=== PATIENT | male | born 1950 ===

== ENCOUNTER 2017-08-25 14:52 | Inpatient (IN) | payer SELFPAY ==
[~2017-08-25 14:52] MED LIST: ISOVUE-370 76%-LOCM 1 ML ONE
[2017-08-25 15:18] LABS: #Basophils 0.1 thou/uL (0.0-0.2); #Eosinphils 0.2 thou/uL (0.0-0.7); #Lymphocytes 2.1 thou/uL (1.20-3.40); #Monocytes 0.5 thou/uL (0.11-0.59); #Neutrophils 4.9 thou/uL (1.40-6.50); %Basophils 0.8 % (0.0-1.0); %Eosinophils 2.4 % (0.0-10.0); %Lymphocytes 26.6 % (21.0-51.0); %Monocytes 6.9 % (0.0-10.0); %Neutrophils 63.3 % (42.0-75.0); Hemoglobin 14.9 g/dL (14.0-18.0); Mean Corpuscular HGB CONC 34.4 g/dL (32.0-36.0); Mean Corpuscular Hemoglobin 29.9 pg (27.0-31.0); Mean Corpuscular Volume 86.9 fl (80.0-94.0); Mean Platelet Volume 7.3 fL (7.4-10.4); Platelet Count 262 thou/uL (130-400); RBC Distribution Width 11.3 % (11.5-14.5); Red Blood Cell (RBC) Count 4.99 mill/uL (4.70-6.10); White Blood Cell (WBC) Count 7.8 thou/uL (4.8-10.8)
[2017-08-25 15:24] LABS: PTT 26.2 SEC (22.9-36.1); Prothrombin Time 13.6 SEC (12.0-14.7)
[2017-08-25 15:33] LABS: ALT (SGPT) 19 U/L (8-55); AST (SGOT) 16 U/L (5-34); Albumin 4.3 g/dL (3.4-4.8); Alkaline Phosphatase 87 U/L (40-150); Anion Gap 13 mmol/L (10-20); BUN (Urea Nitrogen) 11 mg/dL (8.4-25.7); Bilirubin, Total 0.5 mg/dL (0.2-1.2); Calc. Creatinine Clearance 0 mL/min (70-130); Calcium 9.9 mg/dL (7.8-10.44); Carbon Dioxide 22 mmol/L (23-31); Chloride 103 mmol/L (98-107); Estimated GFR-MDRD 86; Glucose 321 mg/dL (80-115); Potassium 4.1 mmol/L (3.5-5.1); Protein, Total 7.3 g/dL (5.8-8.1); Sodium 134 mmol/L (136-145)
[2017-08-25 15:36] LABS: CKMB 1.2 ng/mL (0-6.6); Troponin I Less than 0.010 ng/mL (< 0.028)
--- NOTE | 2017-08-25 17:26 | CT ---
CT ARTERIOGRAM HEAD WITH IV CONTRAST AND 3D MIP IMAGING CT PERFUSION BRAIN EXAM 08/25/17 HISTORY: Right arm paresthesias. Last seen normal four hours ago. FINDINGS: Noncontrast head CT is not included. Small amounts of hemorrhage cannot be excluded. There is bovine origin of the great vessels from the aortic arch with mild arterial calcification. Go od contrast flow into each carotid system and each vertebral artery. There is calcification of each c arotid bifurcation with no significant stenosis. Noncalcified plaque along the medial margin of the p roximal right internal carotid artery includes some contrast into an ulceration. Intracranially, the [place] is patent. Good flow throughout each internal carotid system and to the vertebrobasilar system. Perfusion images show no alteration of flow. Perfusion is symmetric. IMPRESSION: Atherosclerosis. No acute intracranial vascular insult is apparent. Findings were called to Dr. Scott in the Emergency Department at 1540 hours. Code CR POS: [facility]
--- NOTE | 2017-08-25 17:28 | CT ---
CT HEAD WITH IV CONTRAST 08/25/17 HISTORY: Slurred speech. Recent CT arteriogram and perfusion. FINDINGS: Diffuse cortical atrophy is apparent. Ventricular size is upper limits of normal. No abnormal areas o f contrast enhancement are apparent. A noncontrast study is not included to exclude a small amount of intracranial hemorrhage. Prior nonco ntrast CT was reportedly negative for intracranial hemorrhage. IMPRESSION: No acute intracranial abnormalities are demonstrated. POS: [facility]
[2017-08-25] MEDS ORDERED: Labetalol HCl 100 MG/20 ML VIAL SLOW IVP PRN (19:06)
[2017-08-25] MEDS ORDERED: niCARdipine 20MG in NaCl 200 ML BAG IVPB PRN (19:06)
[2017-08-25] MEDS ORDERED: niCARdipine HCl 25 MG in Sodium Chloride 0.9% 250 ML 240 ML IVPB PRN (19:09)
[2017-08-25] MEDS ORDERED: Acetaminophen 650 MG Suppository PR PRN (20:11)
[2017-08-25] MEDS ORDERED: Ondansetron HCl/PF 4 MG/2 ML Vial IVP PRN (20:11)
[2017-08-25] MEDS ORDERED: Bisacodyl 5 MG TAB PO PRN (20:11)
[2017-08-25] MEDS ORDERED: Ondansetron ODT 4 MG TAB PO PRN (20:11)
[2017-08-25] MEDS: Docusate 100 MG CAP PO SCH (22:10)
[2017-08-25] MEDS: Famotidine 20 MG TAB PO SCH (22:10)
--- NOTE | 2017-08-26 03:21 | HP ---
PRIMARY CARE PHYSICIAN: None. CHIEF COMPLAINT: Right facial droop, slurred speech, and right upper extremity weakness. HISTORY OF PRESENT ILLNESS: This is a 67-year-old, white male without any known past medical history. He had acute onset of slurred speech and right- sided facial droop along with right upper extremity weakness at 11 this morning. He was seen at [facility] and had tPA done at 2: 55 in the afternoon, just under 4 hours after beginning of symptoms. Per EMS, the patient's speech and facial droop have improved slightly. He was then transferred to our facility for neurology consultation and admission. The patient has not had any bleeding or other side effects from the anticoagulation. Blood pressure was running a little bit high, 183/97, on presentation to the emergency room. It did come down into the 160s and 170s. The patient was then transferred to the ICU. In the ICU, his blood pressure did jump into the 180s again, and so, he has been started on medications to control and keep it below 180/105. The patient denies any other complaints at this time. PAST MEDICAL HISTORY: None. PAST SURGICAL HISTORY: None. SOCIAL HISTORY: The patient used to smoke cigarettes. He was unable to clearly articulate how long ago he quit, that was apparently some years ago. He used to drink some beer, I was unable to elicit from him exactly how much due to his trouble with speech, but stated he quit that some time ago as well. No illicit drugs. ALLERGIES: No known drug allergies. CURRENT MEDICATIONS: The patient takes an occasional aspirin, maybe 2 or 3 times a month. No other regular medicines. FAMILY HISTORY: No family history of stroke or heart attack. REVIEW OF SYSTEMS: CONSTITUTIONAL: No fevers or chills. EYES: No double vision or blurred vision. ENT: No congestion, drainage, or sore throat. PULMONARY: No coughing, wheezing, or shortness of breath. CARDIAC: No chest pain, no palpitations or racing heart. GASTROINTESTINAL: No abdominal pain. No nausea or vomiting. No diarrhea or constipation. GENITOURINARY: No dysuria or hematuria. MUSCULOSKELETAL: No muscle aches or joint pains. SKIN: No rashes or lesions noted. NEUROLOGIC: He noted numbness of his arm. Right upper extremity is feeling , and ever since the onset of the symptoms, he does have some movement in this, but it is more uncoordinated, a little bit weaker, and he has noticed a little bit of numbness on the right side of his face, but not much there and decreased movement in the right side of his face and trouble with his speech, trouble getting out words, especially numbers and getting out names as well are difficult for him. PHYSICAL EXAMINATION: VITAL SIGNS: Blood pressure currently in the 150s/90s, temperature 98.6, pulse in the 90s, respirations 18. GENERAL: This is a well developed, well nourished, white male, in no acute distress. HEENT: Pupils equal, round, and reactive to light. Extraocular movements intact. Oropharynx is clear without lesions, erythema, or exudate. NECK: Supple. No lymphadenopathy, no thyroid nodules or enlargement, no JVD. HEART: Regular rate and rhythm. No murmurs, rubs, or gallops. LUNGS: Clear to auscultation bilaterally. No wheezes, crackles, or rhonchi. ABDOMEN: Soft, nontender to palpation, normoactive bowel sounds, no hepatosplenomegaly or other masses. EXTREMITIES: No clubbing, cyanosis, or edema. SKIN: No rashes or other lesions noted. NEUROLOGIC: The patient has decreased coordination and strength in his right upper extremity, although he is able to move it. He also has a complete right facial droop, sparing his forehead, and he has a lot of dysarthria and trouble with word finding, especially numbers and people's names. Per the ER note, he also failed a bedside swallow. His NIHSS score is 5. PSYCHIATRIC: Alert and oriented x3, normal mood and affect. LABORATORY DATA: EKG shows sinus tachycardia. No ectopic beats. He has a complete right bundle-branch block. No other arrhythmia. CT of the head without contrast negative for abnormalities and CTA perfusion showed no evidence of perfusion defect or intravascular clot. Complete metabolic panel with a sodium of 134, carbon dioxide 22, and glucose of 321, the rest is normal. Cardiac marker set negative x1. Coagulation profile normal. CBC was normal. ASSESSMENT AND PLAN: 1. Acute ischemic stroke, status post tPA. We will follow guidelines of keeping blood pressure below 180/105 for the first 24 hours after administration of the tPA that will be until about 3 tomorrow afternoon. We will closely monitor his NIH stroke scale for any sudden changes and CT if necessary. We will go ahead and get an MRI to evaluate for the location and extent of the stroke, and we will get a repeat CT after 24 hours at 3 tomorrow afternoon to make certain of no bleeding post-tPA. We will go ahead and consult the stroke team and neurologist as well. 2. Dysphagia. We will do the saline bedside swallow. We will have Speech Therapy evaluate the patient. We will keep him nothing by mouth for now. 3. Gastrointestinal prophylaxis the patient on Pepcid twice a day. 4. Deep venous thrombosis prophylaxis. We will need to hold off on antiplatelet or blood thinner medications like Lovenox for at least 24 hours after his tPA administration. We will go ahead and use sequential compression devices for now. 5. Code status. I did discuss this with the patient at length. He did express understanding of the questions about whether he wanted chest compressions, shocks, and intubation. He was adamant that he would not want any of those things that he is a DO NOT RESUSCITATE, but otherwise wants normal medical care. He stated that his children would be his medical decision makers should he be incapacitated; however, he was unable to enunciate their names or phone numbers for me due to his dysarthria. We will try and find them from records from the [facility]
[2017-08-26] MEDS: Acetaminophen 325 MG TAB PO PRN (04:20)
[2017-08-26] MEDS ORDERED: FLU VACC TS2017-18 (>65YR) 0.5 ML SYRINGE IM ONE (09:00)
--- NOTE | 2017-08-26 09:50 | RAD ---
CHEST 1 VIEW: Date: 08/26/17 HISTORY: CVA. FINDINGS: Cardiac silhouette is magnified by projection. Pulmonary vasculature is unremarkable. Mediastinum is midline with aortic calcification. No lobar consolidation or evidence of pneumothorax. There are dege nerative changes of each shoulder. 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 IMPRESSION: Atherosclerosis. No active cardiopulmonary abnormalities are otherwise demonstrated. POS: [facility]
--- NOTE | 2017-08-26 10:04 | PDOC.PN ---
- Subjective Encounter Start Date: 08/26/17 Encounter Start Time: 12:00 Subjective: Patient with some improvement in speech. Right arm with some -: return of sensation and improvement in strenght, still uncoordinated. - Objective Resuscitation Status: Resuscitation Status DNR:Do Not Resuscitate MAR Reviewed: Yes Vital Signs & Weight: Vital Signs (12 hours) Temp Pulse Ox 08/26/17 07:35 96 08/26/17 07:00 97.8 F 08/26/17 04:00 98.2 F 08/26/17 00:00 97.6 F Weight Weight 194 lb 10.691 oz Most Recent Monitor Data Heart Rate from ECG 91 NIBP 156/86 NIBP BP-Mean 96 Respiration from ECG 16 SpO2 92 I&O: 08/25/17 08/26/17 08/27/17 06:59 06:59 06:59 Intake Total 360 Output Total 425 Balance -65 Result Diagrams: 08/25/17 15:07 08/25/17 15:07 Phys Exam - Physical Examination Constitutional: NAD HEENT: moist MMs Respiratory: no wheezing, no rales, no rhonchi, clear to auscultation bilateral Cardiovascular: RRR, no significant murmur Gastrointestinal: soft, non-tender, positive bowel sounds right UE incoordinated, still with right facial droop Psychiatric: normal affect, A&O x 3 Dx/Plan (1) Ischemic stroke Code(s): I63.9 - CEREBRAL INFARCTION, UNSPECIFIED Status: Acute (2) Tissue plasminogen activator (t-PA) administered at other facility within 24 hours prior to current admission Code(s): Z92.82 - S/P ADMN TPA IN DIFF FAC W/N LAST 24 HR BEF ADM TO CRNT FAC Status: Acute Comment: BP at goal, remaining less than 180/105, will repeat CT brain this afternoon at 24 hours after t-PA admin (3) Dysphagia Code(s): R13.10 - DYSPHAGIA, UNSPECIFIED Status: Acute Comment: passed bedside swallow overnight, speech therapy to see - Plan cont current plan of care, PT/OT, social service assistant, speech therapy no antiplatelet or lovenox for 24 hours after t-PA -: Can transfer to stroke after 1500 if no neurologic decline -: awaiting neuro eval * . - Discharge Day Encounter end time: 12:15
[2017-08-26] MEDS: Aspirin 325 mg Enteric Coated Tablet PO SCH (10:08)
[2017-08-26] MEDS: Famotidine 20 MG TAB PO SCH ×2 (10:08→20:11)
[2017-08-26] MEDS: Docusate 100 MG CAP PO SCH ×2 (10:08→20:11)
--- NOTE | 2017-08-26 11:52 | CON ---
DATE OF CONSULTATION: 08/26/2017 HISTORY OF PRESENT ILLNESS: He is a 67-year-old gentleman admitted here after he received t-PA at [facility], transferred over here. Apparently there was no physician to take care of him there. He still has some residual right-sided facial droop. He denies any chest pain, chills, sweats, hemoptysis. 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 He tells me that he has no primary care physician. PAST MEDICAL HISTORY: He states he has no major medical problem, no history of diabetes or hypertens ion. PAST SURGICAL HISTORY: None. TOBACCO: Quit smoking 20 years ago. ALCOHOL: Quit drinking many years ago. CHRONIC MEDICATIONS: None. ALLERGIES: None. SOCIAL/FAMILY HISTORY: Unremarkable. There are no family members to get additional information. REVIEW OF SYSTEMS: Ten point negative. PHYSICAL EXAMINATION: VITAL SIGNS: Pulse 92, blood pressure 156/60, sats 95% on room air, respirations 12. CHEST: Chest revealed minimal wheezing. CARDIAC: Normal S1-S2. No gallops. ABDOMEN: Soft. No mass. LABORATORY: White count 10,000, H&H 14 and 43, platelet count 262. His electrolytes are normal. Hi s initial CT of his head was negative. CT neck report as noted shows small amounts of hemorrhage pos sible. There was good flow through both internal carotid systems. Additionally lab was otherwise normal. IMPRESSION: 1. Status post right-sided weakness, facial drooping, status post t-PA. 2. Former tobacco abuse. 3. Former alcohol abuse. PLAN: Will try and get information as his family arrives. Neurology input. Pulmonary will follow while in the ICU. We will start aspirin. Supportive care. This is a consultation note in the ICU, 70 minutes of which 50% spent in direct patient care.
--- NOTE | 2017-08-26 13:47 | CON ---
DATE OF CONSULTATION: 08/26/2017 CHIEF COMPLAINT: Cerebrovascular accident. HISTORY OF PRESENT ILLNESS: The patient was in his usual state of health and he does not have any kn own medical issues. The patient had slurred speech and right-sided facial droop around 11:00 a.m. an d TPA was completed around 2:55 on 08/25/2017 and following that, the patient had improvement of spee ch and facial droop. The patient still complains of difficulty with speech and also right-sided weak ness. He is stable status post TPA and he does not report any prior medical issues. He states he is healthy otherwise. He does not have any diabetes or hypertension. PAST SURGICAL HISTORY: None. SOCIAL HISTORY: He used to dip. Since last November, he stopped and he weaned himself off of that. He does not smoke. He does drink occasionally. ALLERGIES: No known drug allergies. MEDICATIONS: He takes occasional aspirin. FAMILY HISTORY: No history of any stroke or Health issues in the family. No cancers in the family. REVIEW OF SYSTEMS: Pulmonary: Normal. Cardiac: Normal. Gastrointestinal: Normal. Genitourinary : Normal. Ophthalmologic: Normal. ENT: Normal. Neurologic: Positive for weakness and numbness in the right arm and speech difficulty. Musculoskeletal: No pain. Dermatologic: Normal. LABORATORY DATA: White count 7.8, hemoglobin 14.9, hematocrit 43.3, platelets 262. Chemistry: [place] um 134, potassium 4.1, chloride 103, bicarbonate 22, BUN 11, creatinine 0.89, glucose 321, AST 16, AL T 19, alkaline phosphatase 87, calcium 99, total bilirubin 0.5 and PT 13.6, INR 1.0, PTT 26.2. CT of the head from 08/25/2017 showed no acute intracranial abnormalities. His MRI is pending today. PHYSICAL EXAMINATION: VITAL SIGNS: Blood pressure 163/86, heart rate 87, respiratory rate 11, temperature afebrile. GENERAL APPEARANCE: Well-built, well-nourished, very pleasant gentleman. CHEST: Clear vesicular breathing. CARDIOVASCULAR: S1, S2 heard, no murmurs. ABDOMEN: Soft, nontender, no organomegaly noted. NEUROLOGIC: Motor: Bulk normal, tone normal, strength 5/5 throughout in iliopsoas, hamstrings, quad riceps, ankle dorsiflexion, plantar flexion, deltoid, biceps, triceps, wrist extension and flexion, f jeff extension and flexion on the left side. On the right side, his upper extremity deltoid is 4/5, biceps 4+/5, triceps 5, wrist extension is 4, flexion is 4, finger extension 3+, finger flexion 3+. Deep tendon reflexes 2+ in upper and lower extremities in biceps, triceps, brachioradialis, and knee jerks and ankle jerks. Sensory: Normal touch, temperature proprioception, vibration bilaterally. Cerebellar: Normal [id number] and [id number]. IMPRESSION: The patient is a 67-year-old man with no known medical problems. He is in his usual sta te of health and developed sudden onset right-sided weakness as well as numbness in the right hand an d aphasia and speech and swallowing difficulties. He received IV TPA yesterday and he remained stabl e. Examination shows dysarthria, mild aphasia and weakness in the right upper extremity. His clinic al examination and history is consistent with most likely left MCA branch occlusion, underlying facto rs need to be investigated. RECOMMENDATIONS: We are waiting on his MRI of the brain. I will also add MR angiogram of the brain to the orders and complete stroke workup including echocardiogram, carotid Dopplers and we will also need to obtain echocardiogram and stroke labs. I will follow up the patient with you for now. Radha steele acute IV TPA stroke protocol. We will keep permissive hypertension with systolic around 180, diast olic around 100. Thank you for the consultation request. Please call if there are any changes in his neurological sta tus.
[2017-08-26 15:36] LABS: #Basophils 0.1 thou/uL (0.0-0.2); #Eosinphils 0.2 thou/uL (0.0-0.7); #Lymphocytes 2.5 thou/uL (1.20-3.40); #Monocytes 0.8 thou/uL (0.11-0.59); #Neutrophils 5.2 thou/uL (1.40-6.50); %Basophils 0.7 % (0.0-1.0); %Eosinophils 2.4 % (0.0-10.0); %Lymphocytes 28.4 % (21.0-51.0); %Monocytes 8.8 % (0.0-10.0); %Neutrophils 59.7 % (42.0-75.0); Hemoglobin 14.5 g/dL (14.0-18.0); Mean Corpuscular HGB CONC 33.6 g/dL (32.0-36.0); Mean Corpuscular Hemoglobin 29.7 pg (27.0-31.0); Mean Corpuscular Volume 88.3 fl (80.0-94.0); Mean Platelet Volume 7.5 fL (7.4-10.4); Platelet Count 288 thou/uL (130-400); RBC Distribution Width 11.1 % (11.5-14.5); Red Blood Cell (RBC) Count 4.89 mill/uL (4.70-6.10); White Blood Cell (WBC) Count 8.7 thou/uL (4.8-10.8)
[2017-08-26 15:49] LABS: Anion Gap 17 mmol/L (10-20); BUN (Urea Nitrogen) 9 mg/dL (8.4-25.7); Calc. Creatinine Clearance 111 mL/min (70-130); Calcium 9.7 mg/dL (7.8-10.44); Carbon Dioxide 20 mmol/L (23-31); Chloride 103 mmol/L (98-107); Estimated GFR-MDRD Greater than 90; Glucose 241 mg/dL (80-115); Potassium 3.8 mmol/L (3.5-5.1); Sodium 136 mmol/L (136-145)
--- NOTE | 2017-08-26 16:31 | MRI ---
NONCONTRAST ENHANCED MRI IMAGES OF THE BRAIN: 08/26/17 HISTORY: Stroke. Multiplanar and multisequence noncontrast enhanced MRI images of the brain is obtained. Images demonstrate some age appropriate cortical atrophy. There are areas of T2 signal increase with associated areas of diffusion restriction in the left post erior frontal lobe extending somewhat inferiorly along the left frontal lobe in the left MCA distribu tion. This is compatible with areas of acute stroke. Normal flow voids seen in the major intracranial vessels. The patient has dominant left vertebral art sherri with hypoplastic right vertebral artery. IMPRESSION: Acute left anterior MCA distribution area of stroke. POS: [facility]
[2017-08-27 05:17] LABS: Cardiac Risk 8.4 (Less than 4.5)
[2017-08-27] MEDS: Famotidine 20 MG TAB PO SCH ×2 (08:52→20:07)
[2017-08-27] MEDS: Aspirin 325 mg Enteric Coated Tablet PO SCH (08:52)
[2017-08-27] MEDS: Docusate 100 MG CAP PO SCH ×2 (08:52→20:06)
--- NOTE | 2017-08-27 09:36 | PDOC.PN ---
- Subjective Encounter Start Date: 08/27/17 Encounter Start Time: 11:30 Subjective: Patient unchanged. Still with discoordination of right arm. No CRUZ or other -: pain. No new complaints. - Objective Resuscitation Status: Resuscitation Status DNR:Do Not Resuscitate MAR Reviewed: Yes Vital Signs & Weight: Vital Signs (12 hours) Temp Pulse Resp BP Pulse Ox 08/27/17 07:20 98.2 F 76 16 96 08/27/17 07:05 98.6 F 88 18 136/78 96 08/27/17 03:35 98.2 F 76 16 139/89 97 08/27/17 03:02 99 08/27/17 00:44 97.9 F 79 16 130/77 96 Weight Admit Weight 194 lb 10.691 oz Weight 193 lb 11.2 oz Most Recent Monitor Data Heart Rate from ECG 92 NIBP 126/99 NIBP BP-Mean 122 Respiration from ECG 26 SpO2 95 I&O: 08/26/17 08/27/17 08/28/17 06:59 06:59 06:59 Intake Total 360 1655 Output Total 425 1145 300 Balance -65 510 -300 Result Diagrams: 08/26/17 15:20 08/26/17 15:20 Phys Exam - Physical Examination Constitutional: NAD HEENT: moist MMs Respiratory: no wheezing, no rales, no rhonchi, clear to auscultation bilateral Cardiovascular: RRR, no significant murmur Gastrointestinal: soft, positive bowel sounds Musculoskeletal: no edema Right facial droop mildly improved, RUE uncoordinated with decent strength, Clear speech. Psychiatric: normal affect, A&O x 3 Dx/Plan (1) Ischemic stroke Code(s): I63.9 - CEREBRAL INFARCTION, UNSPECIFIED Status: Acute Comment: MRI with acute left anterior MCA stroke (2) Tissue plasminogen activator (t-PA) administered at other facility within 24 hours prior to current admission Code(s): Z92.82 - S/P ADMN TPA IN DIFF FAC W/N LAST 24 HR BEF ADM TO CRNT FAC Status: Acute Comment: Beyond 24 hours after t-PA, no bleeding or deterioration, actually improving some. Will start blood thinners/antiplatelet therapy when ok'd by neurology (3) Dysphagia Code(s): R13.10 - DYSPHAGIA, UNSPECIFIED Status: Acute Comment: passed bedside swallow overnight, speech therapy to see (4) Hyperlipidemia Code(s): E78.5 - HYPERLIPIDEMIA, UNSPECIFIED Status: Acute Qualifiers: Hyperlipidemia type: mixed hyperlipidemia Qualified Code(s): E78.2 - Mixed hyperlipidemia Comment: start Atorvastatin 40mg daily - Plan cont current plan of care, PT/OT, DVT proph w/SCDs * . - Discharge Day Encounter end time: 11:40
--- NOTE | 2017-08-27 11:51 | PRG ---
DATE OF SERVICE: 08/27/2017 CHIEF COMPLAINT: Acute cerebrovascular accident. INTERVAL HISTORY: Patient is doing well since yesterday. He is able to eat and is now on regular fl oor. No further events are noted and he is also working with the therapist. LABORATORY DATA AND IMAGING DATA: White count 8.7, hemoglobin 14.5, hematocrit 43.2, and platelet co unt 288. Chemistries: Sodium 136, potassium 3.8, chloride 103, bicarbonate 20, BUN 9, creatinine 0. 83, triglycerides 2.202, cholesterol 235, LDL cholesterol 167, HDL is 28. CT angiogram of the brain showed atherosclerosis and no acute lesion and this was post-tPA. His brain MRI shows acute left MCA distribution stroke. PHYSICAL EXAMINATION: VITAL SIGNS: Blood pressure 136/78, temperature 98.6, pulse 88, respiratory rate 18. GENERAL APPEARANCE: Well-built, well-nourished gentleman. CHEST: Clear vesicular breathing. CARDIAC: S1, S2 heard. NEUROLOGIC: Higher intellectual functions, normal orientation to time, place, person, and he has a r ight facial droop and dysarthria is better than yesterday. Motor examination: Bulk normal, tone nor mal, strength 5/5 in both upper and lower extremities and finger extensors on the right hand are much stronger, finger flexors are 4/5. IMPRESSION: Patient with left MCA CVA. His current workup is in progress. He is pending echocardio gram at this time. His examination shows improvement in his clinical status, particularly improvemen t in his weakness as well as dysarthria. RECOMMENDATIONS: 1. Please continue current plans with aspirin as a prophylactic treatment for future cerebrovascular events. 2. Resume physical therapy and speech therapy and follow the patient with you.
--- NOTE | 2017-08-27 18:44 | PRG ---
DATE OF SERVICE: 08/27/2017 SUBJECTIVE: He is doing well. He is walking in the room. OBJECTIVE: VITAL SIGNS: Sats are 96 on room air, temperature 98, pulse 78, respirations 16, blood pressure 100/ 78. CHEST: No wheezing. CARDIAC: Normal S1, S2, no gallops. LABORATORY DATA: White count normal. Electrolytes are normal. IMPRESSION: Status post right-sided cerebrovascular accident, status post TPA at [facility]. Residual right facial weakness. MRI done yesterday shows acute left anterior MCA distribution area stroke. PLAN: Continue aspirin as prescribed. Supportive care. Control blood pressure. Pulmonary will fol low at a distance. Please call as needed.
[2017-08-27] MEDS: Atorvastatin Calcium 40 MG TAB PO SCH (20:06)
[2017-08-27] MEDS: Acetaminophen 325 MG TAB PO PRN (20:07)
[2017-08-28] MEDS: Famotidine 20 MG TAB PO SCH ×2 (08:54→20:16)
[2017-08-28] MEDS: Docusate 100 MG CAP PO SCH ×2 (08:54→20:16)
[2017-08-28] MEDS: Aspirin 325 mg Enteric Coated Tablet PO SCH (08:54)
--- NOTE | 2017-08-28 10:01 | PDOC.PN ---
- Subjective Encounter Start Date: 08/28/17 Encounter Start Time: 07:00 Pt seen for followup re: ischemic CVA. Denies chest pain or shortness of breath. Still has RUE weakness. Still has dysarthria. - Objective Resuscitation Status: Resuscitation Status DNR:Do Not Resuscitate MAR Reviewed: Yes Vital Signs & Weight: Vital Signs (12 hours) Temp Pulse Resp BP Pulse Ox 08/28/17 07:20 98.3 F 75 18 128/68 95 08/28/17 04:00 98.3 F 75 18 125/80 95 08/28/17 00:00 98.7 F 81 20 119/79 97 Weight Admit Weight 194 lb 10.691 oz Weight 193 lb Most Recent Monitor Data Heart Rate from ECG 92 NIBP 126/99 NIBP BP-Mean 122 Respiration from ECG 26 SpO2 95 I&O: 08/27/17 08/28/17 08/29/17 06:59 06:59 06:59 Intake Total 1655 1320 300 Output Total 1145 950 Balance 510 370 300 Result Diagrams: 08/26/17 15:20 08/26/17 15:20 EKG Reviewed by me: Yes (Tele: Sinus tachycardia) Phys Exam - Physical Examination Constitutional: NAD HEENT: moist MMs Neck: supple Respiratory: clear to auscultation bilateral Cardiovascular: RRR Gastrointestinal: soft Musculoskeletal: pulses present Neurological: moves all 4 limbs Dysarthria+, power 4+/5 RUE, 5/5 other extremities Psychiatric: normal affect, A&O x 3 Skin: no rash Dx/Plan (1) Ischemic stroke Code(s): I63.9 - CEREBRAL INFARCTION, UNSPECIFIED Status: Acute Comment: Neurology following, continue aspirin and statin (2) Hyperlipidemia Code(s): E78.5 - HYPERLIPIDEMIA, UNSPECIFIED Status: Acute Qualifiers: Hyperlipidemia type: mixed hyperlipidemia Qualified Code(s): E78.2 - Mixed hyperlipidemia Comment: continue Atorvastatin 40mg daily (3) Dysarthria Code(s): R47.1 - DYSARTHRIA AND ANARTHRIA Status: Acute (4) Tissue plasminogen activator (t-PA) administered at other facility within 24 hours prior to current admission Code(s): Z92.82 - S/P ADMN TPA IN DIFF FAC W/N LAST 24 HR BEF ADM TO CRNT FAC Status: Acute Comment: Neurology following - Plan PT/OT, out of bed/ambulate * . Review of Systems - Review of Systems Respiratory: negative: Cough, Dry, Shortness of Breath, Hemoptysis, SOB with Excertion, Pleuritic Pain, Sputum, Wheezing Cardiovascular: negative: chest pain, palpitations, orthopnea, paroxysmal nocturnal dyspnea, edema, light headedness Neurological: Weakness, Change in Speech. negative: Numbness, Incoordination, Confusion, Seizures - Medications/Allergies Allergies/Adverse Reactions: Allergies Allergy/AdvReac Type Severity Reaction Status Date / Time No Known Allergies Allergy Verified 08/25/17 21:47 Medications: Current Medications Acetaminophen (Tylenol) 650 mg PO Q4H PRN PRN Reason: Headache/Fever or Pain Last Admin: 08/27/17 20:07 Dose: 650 mg Acetaminophen (Tylenol) 650 mg [place] Q4H PRN PRN Reason: Headache/Fever or Pain Aspirin (Ecotrin) 325 mg PO DAILY [facility] Last Admin: 08/28/17 08:54 Dose: 325 mg Atorvastatin Calcium (Lipitor) 40 mg PO HS [facility] Last Admin: 08/27/17 20:06 Dose: 40 mg Bisacodyl (Dulcolax) 10 mg PO DAILYPRN PRN PRN Reason: Constipation Docusate Sodium (Colace) 100 mg PO BID [facility] Last Admin: 08/28/17 08:54 Dose: 100 mg Famotidine (Pepcid) 20 mg PO BID [facility] Last Admin: 08/28/17 08:54 Dose: 20 mg Nicardipine HCl 25 mg/ Sodium (Chloride) 250 mls @ 50 mls/hr IVPB INF PRN; Protocol; 5 MG/HR PRN Reason: SBP > 180 mmHg Labetalol HCl (Normodyne) 10 mg SLOW IVP Q2H PRN PRN Reason: SBP > 180 Ondansetron HCl (Zofran Odt) 4 mg PO Q6H PRN PRN Reason: Nausea/Vomiting Ondansetron HCl (Zofran) 4 mg IVP Q6H PRN PRN Reason: Nausea/Vomiting
--- NOTE | 2017-08-28 12:33 | PRG ---
DATE OF SERVICE: 08/28/2017 CHIEF COMPLAINT: Stroke. INTERVAL HISTORY: The patient remains stable. He has had improvement in his speech and also right u pper extremity weakness. LABORATORY REPORTS: No additional results from yesterday or today except for triglycerides 202, chol esterol 235, LDL 167, HDL 28. PHYSICAL EXAMINATION: VITAL SIGNS: Blood pressure is 122/69, temperature 98.5, pulse is 82, respiratory rate 18. CHEST: Clear vesicular breathing. CARDIOVASCULAR: S1 and S2 heard, no murmurs. ABDOMEN: Soft. NEUROLOGICAL EXAM: Mild dysarthria and right facial droop; and motor exam, normal strength bilateral ly in upper and lower extremities and mild incoordination in the right upper extremity. IMPRESSION: Patient is a 67-year-old man with history of left middle cerebral artery distribution ce rebrovascular accident, likely risk factors hypercholesterolemia and hypertension. RECOMMENDATIONS: We are still pending echocardiogram. Please complete his workup. Consider dischar ge on aspirin. From neurological standpoint, he can be discharged.
--- NOTE | 2017-08-28 14:13 | PRG ---
DATE OF SERVICE: 08/28/2017 SUBJECTIVE: Mr. Maya is doing well, walking in the house. OBJECTIVE: VITAL SIGNS: Blood pressure 128/68, sats are 100% on room air, temperature is 98 and pulse 75 and re spirations 18. CHEST: No wheezing. CARDIAC: Normal S1 and S2. ABDOMEN: Soft. No masses. IMPRESSION: Cerebrovascular accident, status post TPA. PLAN: Continue rehabilitation. Pulmonary Critical Care will follow at a distance.
[2017-08-28] MEDS: Atorvastatin Calcium 40 MG TAB PO SCH (20:16)
[2017-08-29] MEDS: Aspirin 325 mg Enteric Coated Tablet PO SCH (08:35)
[2017-08-29] MEDS: Docusate 100 MG CAP PO SCH ×2 (08:35→21:31)
[2017-08-29] MEDS: Famotidine 20 MG TAB PO SCH ×2 (08:36→21:31)
--- NOTE | 2017-08-29 09:32 | PDOC.PN ---
- Subjective Encounter Start Date: 08/29/17 Encounter Start Time: 07:00 Pt seen for followup re: ischemic CVA. Denies chest pain or shortness of breath. RUE weakness better. Still has difficulty speaking. - Objective Resuscitation Status: Resuscitation Status DNR:Do Not Resuscitate MAR Reviewed: Yes Vital Signs & Weight: Vital Signs (12 hours) Temp Pulse Resp BP Pulse Ox 08/29/17 07:40 98.1 F 76 20 133/76 97 08/29/17 04:45 97.8 F 71 16 135/71 98 08/29/17 00:15 98.0 F 74 16 114/69 96 Weight Admit Weight 194 lb 10.691 oz Weight 193 lb Most Recent Monitor Data Heart Rate from ECG 92 NIBP 126/99 NIBP BP-Mean 122 Respiration from ECG 26 SpO2 95 I&O: 08/28/17 08/29/17 08/30/17 06:59 06:59 06:59 Intake Total 1320 1140 Output Total 950 Balance 370 1140 Result Diagrams: 08/30/17 09:15 08/30/17 09:15 EKG Reviewed by me: Yes (Tele: NSR) Phys Exam - Physical Examination Constitutional: NAD HEENT: moist MMs Neck: supple Respiratory: clear to auscultation bilateral Cardiovascular: RRR Gastrointestinal: soft Neurological: moves all 4 limbs Power 5/5 all four extremities. Dysarthria+ Psychiatric: normal affect Skin: no rash Dx/Plan (1) Ischemic stroke Code(s): I63.9 - CEREBRAL INFARCTION, UNSPECIFIED Status: Acute Comment: continue aspirin and statin (2) Hyperlipidemia Code(s): E78.5 - HYPERLIPIDEMIA, UNSPECIFIED Status: Acute Qualifiers: Hyperlipidemia type: mixed hyperlipidemia Qualified Code(s): E78.2 - Mixed hyperlipidemia Comment: continue Atorvastatin (3) Dysarthria Code(s): R47.1 - DYSARTHRIA AND ANARTHRIA Status: Acute (4) Tissue plasminogen activator (t-PA) administered at other facility within 24 hours prior to current admission Code(s): Z92.82 - S/P ADMN TPA IN DIFF FAC W/N LAST 24 HR BEF ADM TO CRNT FAC Status: Acute Comment: Neurology following - Plan PT/OT, out of bed/ambulate, DVT proph w/SCDs * . Review of Systems - Review of Systems Respiratory: negative: Cough, Dry, Shortness of Breath, Hemoptysis, SOB with Excertion, Pleuritic Pain, Sputum, Wheezing Cardiovascular: negative: chest pain, palpitations, orthopnea, paroxysmal nocturnal dyspnea, edema, light headedness Neurological: Weakness, Change in Speech - Medications/Allergies Allergies/Adverse Reactions: Allergies Allergy/AdvReac Type Severity Reaction Status Date / Time No Known Allergies Allergy Verified 08/25/17 21:47 Medications: Current Medications Acetaminophen (Tylenol) 650 mg PO Q4H PRN PRN Reason: Headache/Fever or Pain Last Admin: 08/27/17 20:07 Dose: 650 mg Acetaminophen (Tylenol) 650 mg NM Q4H PRN PRN Reason: Headache/Fever or Pain Aspirin (Ecotrin) 325 mg PO DAILY [facility] Last Admin: 08/29/17 08:35 Dose: 325 mg Atorvastatin Calcium (Lipitor) 40 mg PO HS [facility] Last Admin: 08/28/17 20:16 Dose: 40 mg Bisacodyl (Dulcolax) 10 mg PO DAILYPRN PRN PRN Reason: Constipation Docusate Sodium (Colace) 100 mg PO BID [facility] Last Admin: 08/29/17 08:35 Dose: 100 mg Famotidine (Pepcid) 20 mg PO BID [facility] Last Admin: 08/29/17 08:36 Dose: 20 mg Nicardipine HCl 25 mg/ Sodium (Chloride) 250 mls @ 50 mls/hr IVPB INF PRN; Protocol; 5 MG/HR PRN Reason: SBP > 180 mmHg Labetalol HCl (Normodyne) 10 mg SLOW IVP Q2H PRN PRN Reason: SBP > 180 Ondansetron HCl (Zofran Odt) 4 mg PO Q6H PRN PRN Reason: Nausea/Vomiting Ondansetron HCl (Zofran) 4 mg IVP Q6H PRN PRN Reason: Nausea/Vomiting
[2017-08-29 12:21] VITALS: BMI 24.7
--- NOTE | 2017-08-29 20:01 | PRG ---
DATE OF SERVICE: 08/29/2017 SUBJECTIVE: Mr. Maya is a pleasant 67-year-old male who presented with an acute onset of right-sided weakness and aphasia. He is status post IV TPA. Today, he reports of improvement in his speech as well as strength in his right upper extremity. He denies any headache, chest pain, pal pitation, numbness, tingling, lightheadedness or dizziness. PHYSICAL EXAMINATION: VITAL SIGNS: Blood pressure of 124/72, pulse of 86, temperature of 98.3, respirations of 16, O2 sats of 95% on room air. GENERAL: Well-developed, well-nourished male, in no apparent distress. RESPIRATORY: Clear to auscultation bilaterally. CARDIOVASCULAR: Regular rate and rhythm. NEUROLOGICAL: Mental status: The patient is awake, alert, oriented x3. Speech and language: Mild expressive aphasia noted. Cranial nerves: Pupils are 3 mm and reactive. Visual garcia are intact. Extraocular muscles are intact. Face is symmetric. Tongue and uvula are midline. Motor exam showe d normal tone and bulk with a 5/5 strength in both upper and lower extremities. There is no pronator drift noted. Sensory: Sensation is intact and symmetric. IMAGING STUDIES: MRI brain without contrast was reviewed, which showed small acute left middle cereb ral artery ischemic infarct. Carotid Doppler results showed EF of 55% to 60% without any wall motion abnormality or intracardiac mass or thrombus. CT angiogram of the head and neck showed no acute int racranial vascular abnormality. IMPRESSION: 1. Acute left middle cerebral artery distribution ischemic infarct, status post IV TPA with improvem ent in symptoms. 2. Hypertension. 3. Diabetes. 4. Hyperlipidemia. ASSESSMENT AND PLAN: Mr. Maya is a pleasant 67-year-old male who presented with an acu te onset of right hemiparesis and aphasia. He is status post IV TPA. This has improved his symptoms . His echocardiogram and CT angiogram did not show any major abnormality. He is found to have diabe sarah and hyperlipidemia. At this time, I would recommend starting the patient on aspirin 325 mg daily for secondary stroke prevention. He will also need to be on Lipitor 40 mg at bedtime. He may need to be started on antidiabetic medications. I have discussed with him that he needs to control his bl ood pressure, diabetes, and cholesterol. He needs to have a diet and exercise. Continue supportive care. No further neurological workup needed. I will sign off. Please call us if there are any ques tions or concern.
[2017-08-29] MEDS: Atorvastatin Calcium 40 MG TAB PO SCH (21:30)
[2017-08-30] MEDS: Famotidine 20 MG TAB PO SCH (08:23)
[2017-08-30] MEDS: Docusate 100 MG CAP PO SCH (08:23)
[2017-08-30] MEDS: Aspirin 325 mg Enteric Coated Tablet PO SCH (08:23)
[2017-08-30 09:35] LABS: #Eosinphils 0.2 thou/uL (0.0-0.7); #Lymphocytes 1.9 thou/uL (1.20-3.40); #Monocytes 0.6 thou/uL (0.11-0.59); #Neutrophils 4.4 thou/uL (1.40-6.50); %Basophils 0.5 % (0.0-1.0); %Eosinophils 3.4 % (0.0-10.0); %Lymphocytes 26.9 % (21.0-51.0); %Neutrophils 61.1 % (42.0-75.0); Hemoglobin 13.8 g/dL (14.0-18.0); Hemoglobin A1c 10.7 % (4.0-6.0); Mean Corpuscular HGB CONC 35.5 g/dL (32.0-36.0); Mean Corpuscular Hemoglobin 31.5 pg (27.0-31.0); Mean Corpuscular Volume 88.7 fl (80.0-94.0); Mean Platelet Volume 7.6 fL (7.4-10.4); Platelet Count 247 thou/uL (130-400); Red Blood Cell (RBC) Count 4.39 mill/uL (4.70-6.10); White Blood Cell (WBC) Count 7.2 thou/uL (4.8-10.8)
[2017-08-30 09:49] LABS: Anion Gap 12 mmol/L (10-20); BUN (Urea Nitrogen) 12 mg/dL (8.4-25.7); Calc. Creatinine Clearance 96 mL/min (70-130); Calcium 9.4 mg/dL (7.8-10.44); Carbon Dioxide 26 mmol/L (23-31); Chloride 102 mmol/L (98-107); Estimated GFR-MDRD 78; Glucose 255 mg/dL (80-115); Sodium 136 mmol/L (136-145)
[2017-08-30 12:36] VITALS: TEMP 98.6
[2017-08-30 13:18] VITALS: BP 127/73
--- NOTE | 2017-08-30 14:22 | CT ---
CT ARTERIOGRAM HEAD WITH IV CONTRAST AND 3D MIP IMAGING CT PERFUSION BRAIN EXAM 08/25/17 HISTORY: Right arm paresthesias. Last seen normal four hours ago. FINDINGS: Noncontrast head CT is not included. Small amounts of hemorrhage cannot be excluded. There is bovine origin of the great vessels from the aortic arch with mild arterial calcification. Go od contrast flow into each carotid system and each vertebral artery. There is calcification of each c arotid bifurcation with no significant stenosis. Noncalcified plaque along the medial margin of the p roximal right internal carotid artery includes some contrast into an ulceration. Intracranially, the [place] is patent. Good flow throughout each internal carotid system and to the vertebrobasilar system. Perfusion images show no alteration of flow. Perfusion is symmetric. IMPRESSION: Atherosclerosis. No acute intracranial vascular insult is apparent. Findings were called to Dr. Scott in the Emergency Department at 1540 hours. Code CR
--- NOTE | 2017-08-30 14:26 | DIS ---
DATE OF ADMISSION: 08/25/2017 DATE OF DISCHARGE: 08/30/2017 PRIMARY CARE PROVIDER: None. DISCHARGE DIAGNOSES: 1. Acute left anterior middle cerebral artery stroke. 2. Diabetes mellitus. 3. Dyslipidemia. CONDITION OF PATIENT ON THE DAY OF DISCHARGE: Stable. I assessed Mr. Maya on the day of dischar . He denies any chest pain or shortness of breath. Vital signs are stable. S1 and S2 are heard, regular. Lungs are clear to auscultation bilaterally. DISCHARGE MEDICATIONS: Aspirin 325 mg daily, Lipitor 40 mg at bedtime, metformin 500 mg 2 times a da y. HOSPITAL COURSE: Mr. Maya is a pleasant 67-year-old gentleman who was admitted to [facility] on 08/25/2017 for acute ischemic stroke. He was status post TPA. He was seen by Neurology Service as well as by Rehab Services. He improved clinically. He has been started on asp irin. He was also found to have dyslipidemia and an elevated hemoglobin A1c. He has been started on metformin and statin. A 2D echocardiogram showed left ventricular ejection fraction of 55%-60%, EF flow reversal suggestive of diastolic dysfunction, mild mitral regurgitation and mild tricuspid regurgitation. MRI of the ain on 08/26/2017 showed acute left anterior MCA distribution of stroke. He had CT angiogram of the head and neck, which showed calcification of each carotid bifurcation with no significant stenosis an d a noncalcified plaque along the medial margin of the proximal right internal carotid artery, which included some contrast into an ulceration. There was good flow throughout each internal carotid syst em and the vertebral basilar system. He is being discharged home with outpatient physical therapy and speech therapy. I should note that he also had dysarthria at the time of admission, which improved. During this hospitalization, he had triglycerides of 202, cholesterol 235, LDL cholesterol 167, HDL c holesterol 28, hemoglobin A1c of 10.7. On the day of discharge, he had normal electrolytes and theodore l creatinine, normal white count, normocytic anemia with hemoglobin 13.8 and a normal platelet count. He has been advised to follow up with her primary care provider in 3-5 days' time for ongoing managem ent of his health conditions. DISCHARGE DESTINATION: Home. TOTAL AMOUNT OF TIME SPENT COORDINATING THIS DISCHARGE: 33 minutes.
[2017-08-30] MEDS ORDERED: metFORMIN 500 MG TAB PO SCH (17:00)
--- NOTE | 2017-09-18 00:24 | EKG ---
Test Reason : Blood Pressure : / mmHG Vent. Rate : 102 BPM Atrial Rate : 102 BPM P-R Int : 148 ms QRS Dur : 104 ms QT Int : 362 ms P-R-T Axes : 047 -34 044 degrees QTc Int : 471 ms Sinus tachycardia Left axis deviation Incomplete right bundle branch block Abnormal ECG Confirmed by RAI PATIÑO ([id number]), image editor AYAD SIM ([id number]) on 09/18/2017 12:24:05 AM Referred By: Confirmed By:RAI PATIÑO
== END 2017-08-30 14:43 | disposition home or self-care (01) | DRG 65 ==
LOC: ERS 14:52 → CCU 17:22 → 2SE 18:11
PROVIDERS: ADMIT Emergency Medicine; ATTEND Emergency Medicine
DX: I63.512 Cerebral infarction due to unspecified occlusion or stenosis of left middle cerebral artery (principal); Z92.82 Status post administration of tPA (rtPA) in a different facility within the last 24 hours prior to admission to current facility; R13.10 Dysphagia, unspecified; R47.01 Aphasia; E11.9 Type 2 diabetes mellitus without complications; E78.2 Mixed hyperlipidemia; G83.21 Monoplegia of upper limb affecting right dominant side; Z66 Do not resuscitate; Z87.891 Personal history of nicotine dependence
CPT/HCPCS: 0042T; 36415; 36416; 70450; 70496; 70498; 70551; 71045; 80048; 80053; 80061; 82553; 83036; 84484; 85025; 85610; 85730; 90471; 90682; 93005; 93306; G0008; G8978-GP-CK; G8979-GP-CJ; G8987-GO-CJ; G8987-GO-CK; G8988-GO-CI; G8996-GN-CK; G8996-GN-CM; G8997-GN-CI; G8997-GN-CK; Q2036